=== PATIENT | female | born 2000 | race Caucasian/White ===

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

== ENCOUNTER 2024-05-16 11:59 | Emergency (ER) | payer BC, OTHER ==
[~2024-05-16] VITALS: Ht 170.2 cm; Wt 72.8 kg
[~2024-05-16 11:59] MED LIST: CLON0.2T PO; FLUO-125 PO
[2024-05-16 14:38] VITALS: BP 100/76; PULSE 87; RESP 18; TEMP 98.3; O2SAT 98
== END 2024-05-16 17:29 | disposition left against medical advice (07) ==
LOC: ER 11:59
DX: S00.80XA Unspecified superficial injury of other part of head, initial encounter (principal); R11.10 Vomiting, unspecified; Z53.21 Procedure and treatment not carried out due to patient leaving prior to being seen by health care provider; W18.39XA Other fall on same level, initial encounter; Y93.89 Activity, other specified; Y92.89 Other specified places as the place of occurrence of the external cause; Y99.8 Other external cause status